=== PATIENT | female | born 1950 | race Caucasian/White ===

== ENCOUNTER 2023-03-06 06:30 | Emergency (ER) | payer SELFPAY ==
[2023-03-06 06:40] VITALS: BP 143/86; PULSE 104; RESP 18; TEMP 36.9; O2SAT 94
== END 2023-03-06 08:12 | disposition left against medical advice (07) ==
LOC: ANHED 08:10
PROVIDERS: PCP Family Medicine
DX: R05.9 Cough, unspecified (principal); Z53.21 Procedure and treatment not carried out due to patient leaving prior to being seen by health care provider
CPT/HCPCS: 99199